=== PATIENT | female | born 1980 | race Caucasian/White ===

== ENCOUNTER 2019-10-02 14:25 | Observation (INO) | payer OTHER, MEDICAID, SELFPAY ==
[2019-10-02] VITALS (12 sets, daily range): BP systolic 125–152; BP diastolic 73–100; PULSE 68–109; RESP 10–18; TEMP 36–36.9; O2SAT 93–97; BMI 42.5
--- NOTE | 2019-10-02 16:10 | DI.CT.S_ITS ---
PROCEDURE: CT ABDOMEN PELVIS W CON INDICATIONS: rectal abscess? TECHNIQUE: After the administration of oral and intravenous contrast, 5 mm thick sections acquired from the diaphragms to the symphysis. 5 mm thick coronal and sagittal reformats were performed. For radiation dose reduction, the following was used: automated exposure control, adjustment of mA and/or kV according to patient size. COMPARISON: None. FINDINGS: Image quality: Diagnostic. ABDOMEN: Lung bases: Lung bases are clear. Heart size is normal. Solid organs: The liver is slightly decreased when compared to the spleen. Normal definite liver lesions are evident. The patient has had a prior cholecystectomy. The common bile duct is slightly prominent in size, but probably within normal limits given the patient's prior cholecystectomy. The spleen is otherwise unremarkable. The pancreas, adrenals, and kidneys are within normal limits. There is no hydronephrosis. Small extrarenal pelvises may be present bilaterally. No ureteral calculi are identified. There is a small phlebolith adjacent to the distal aspect of the left ureter near the vesicoureteral junction, which is felt to be located outside the ureter (image 80, series 2). Peritoneum and bowel: The stomach is unremarkable. The small bowel loops are nondilated. The appendix is well-visualized and normal. There is mild wall thickening involving the sigmoid colon without surrounding inflammation, which is probably related to incomplete distention. There may be areas of similar wall thickening involving the transverse colon within the left hemiabdomen. Wall thickening involving the rectum is identified with questionable slight adjacent edema within the mid fat. Wall thickening of the anus is also present. There is a small peripherally enhancing fluid collection identified just below the level of the mass within the right gluteal crease, measuring approximately 1.9 x 1.3 cm (image 103, series 2). There is a small tract extending from this loculated fluid collection into the adjacent midline gluteal crease towards the distal margin of the coccyx (image 94, series 2), which may represent a small fistula. No free fluid or loculated fluid collection is present. There is no free air. Nodes and vessels: No retroperitoneal or mesenteric adenopathy. Aorta and inferior vena cava are normal in caliber. Bones: No acute fracture or suspicious osseous lesion is identified. Age-appropriate degenerative changes of the lower lumbar spine are present. PELVIS: Genitourinary: Bladder wall thickness is normal. The uterus and ovaries are not enlarged or well evaluated on CT. Miscellaneous: No inguinal hernias or adenopathy. No free fluid or loculated fluid collections are present. Bones: No suspicious bony lesions. No acute pelvic fractures are identified. IMPRESSION: 1. Thickening of the wall of the rectum and anus is suggestive of anal-proctitis. 2. Perianal fluid collection with a tract extending into the adjacent soft tissues towards the distal tip of the coccyx is highly suspicious for a small perianal abscess with possible early fistula tract formation. 3. No bowel obstruction. 4. Mild hepatic steatosis. Dictated by: Holden Oliver M.D. on 10/02/2019 at 16:33 Approved by: Holden Oliver M.D. on 10/02/2019 at 16:41
[2019-10-02 16:15] LABS: Add Manual Diff / Slide Review NO; Basophils Absolute Auto 100 /uL (0-100); Basophils Percent Auto 0.9 % (0-2); Eosinophils Absolute Auto 200 /uL (0-450); Eosinophils Percent Auto 2.7 % (2-4); Hematocrit 40.9 % (36-46); Hemoglobin 13.6 g/dL (12.0-16.0); Lymphocytes Absolute Auto 2000 /uL (1100-4500); Lymphocytes Percent Auto 22.1 % (25-40); Mean Corpuscular HGB Conc 33.3 % (30-36); Mean Corpuscular Hemoglobin 29.4 PG (26-34); Mean Corpuscular Volume 88.3 fL (80-100); Monocytes Absolute Auto 500 /uL (0-900); Monocytes Percent Auto 5.9 % (3-14); Neutrophils Absolute Auto 6200 /uL (1500-7000); Neutrophils Percent Auto 68.4 % (50-75); Platelet Count 310 X10^3/uL (150-400); Red Blood Cell Count 4.63 X10^6/uL (4.0-5.2)
[2019-10-02 16:30] LABS: Alanine Aminotransferase 28 IU/L (<35); Albumin 4.1 g/dL (3.5-5.0); Albumin Globulin Ratio 1.3 (1.0-2.8); Alkaline Phosphatase 51 U/L (38-126); Aspartate Aminotransferase 40 IU/L (14-36); Blood Urea Nitrogen 12 mg/dL (7-17); Calcium 9.1 mg/dL (8.4-10.2); Carbon Dioxide 29 mmol/L (22-32); Chloride 101 mmol/L (98-107); Estimated Glomerular Filt Rate > 60.0 mL/min (>60); Globulin 3.2 g/dL (1.7-4.1); Glucose 98 mg/dL (70-100); HEMOLYSIS 152 (0-50); Potassium 5.1 mmol/L (3.4-5.1); Sodium 137 mmol/L (137-145); Total Protein 7.3 g/dL (6.3-8.2)
[2019-10-02] MEDS: diphenhydrAMINE 50 MG/ML VIAL IV (16:39)
[2019-10-02] MEDS: methylPREDNISolone 125 MG/2 ML VIAL IV (16:40)
--- NOTE | 2019-10-02 17:03 | PC.NURSE ---
patient states she had a tubaligation. venkata marie
--- NOTE | 2019-10-02 17:56 | ED.SKABFB ---
HPI - Skin/Abscess/Foreign Bdy <NATALIE Hernandez - Last Filed: 10/02/19 20:14> General Chief complaint: Skin/Abscess/Foreign Body Stated complaint: Lump/Sore on top of buttocks Time Seen by Provider: 10/02/19 15:11 Source: patient Mode of arrival: Ambulatory Limitations: no limitations History of Present Illness HPI narrative: The patient is a 29-year-old female with history of smoking and cholecystectomy who presents for chief complaint of a ?boil on the backside.She states she noticed it a few days ago, has not taken anything for pain. She denies any fevers nausea vomiting or diarrhea. She states that her boyfriend looked down and noticed a small red bump. She has never had this before. She has not done any soaks or taken anything or applied anything. Related Data Home Medications Medication Instructions Recorded Confirmed NAPROXEN (NAPROSYN) #0 04/25/11 Allergies Allergy/AdvReac Type Severity Reaction Status Date / Time Iodine and Iodide Containing Allergy Severe Rash Verified 10/02/19 16:37 Produc Review of Systems <NATALIE Hernandez - Last Filed: 10/02/19 20:14> Review of Systems Narrative: GENERAL: Denies chills, fatigue, malaise, fever, sweats. HEENT: Denies sinus pain, ear pain, sore throat, difficulty swallowing, dizziness. RESPIRATORY: Denies dyspnea, cough, wheezing, hemoptysis, sputum. CARDIOVASCULAR: Denies chest pain, palpitations, orthopnea, edema, GASTROINTESTINAL: See HPI : Denies dysuria, frequency, incontinence, hematuria, urinary retention. MUSCULOSKELETAL: denies weakness, joint pain, or bony pain SKIN: See HPI NEUROLOGIC: Denies weakness, headache, numbness, change in speech, confusion, seizures, incoordination. PSYCHIATRIC: No concerning psychosocial issues. 12 point review of systems is negative except for those stated above Patient History <NATALIE Hernandez - Last Filed: 10/02/19 20:14> Social History household members: significant other Smoking Status: Current every day smoker alcohol intake frequency: holidays/special occasions only Substance Use Type: marijuana Exam <NATALIE Hernandez - Last Filed: 10/02/19 20:14> Narrative Exam Narrative: GENERAL: This is a well-nourished, well-developed patient, in no acute distress HEAD: Atraumatic. Normocephalic. No temporal or scalp tenderness. EYES: Pupils equal round and reactive. Extraocular motions intact. No scleral icterus. No injection or drainage. ENT: Nose without bleeding, purulent drainage or septal hematoma. Throat without erythema, tonsillar hypertrophy or exudate. Uvula midline. Airway patent. NECK: Trachea midline. No JVD or lymphadenopathy. Supple, nontender, no meningeal signs. CARDIOVASCULAR: Regular rate and rhythm without murmurs, gallops, or rubs. RESPIRATORY: Breath sounds equal bilaterally. Diffuse expiratory wheezes to auscultation bilaterally. GASTROINTESTINAL: Abdomen soft, non-tender, nondistended. No hepato-splenomegaly, or palpable masses. No guarding. EXTREMITIES: No clubbing, cyanosis, or edema. No joint tenderness, effusion, or edema noted. BACK: Nontender without deformity or crepitance. No flank tenderness. NEURO: AOx3. SKIN: No rash or erythema. Rectal: Diann hastings as commercial litigation associate, area of erythema and tenderness at 2200 pm. 1 cm approx Initial Vital Signs Initial Vital Signs: Vital Signs Temperature 98.4 F 10/02/19 14:38 Pulse Rate 88 10/02/19 14:38 Respiratory Rate 14 10/02/19 14:38 Blood Pressure 152/100 H 10/02/19 14:38 Pulse Oximetry 97 10/02/19 14:38 <Kwesi Noland DO - Last Filed: 10/03/19 01:31 PDT> Initial Vital Signs Initial Vital Signs: Vital Signs Temperature 98.4 F 10/02/19 14:38 Pulse Rate 88 10/02/19 14:38 Respiratory Rate 14 10/02/19 14:38 Blood Pressure 152/100 H 10/02/19 14:38 Pulse Oximetry 97 10/02/19 14:38 Course <NATALIE Hernandez - Last Filed: 10/02/19 20:14> Orders Ordered: Albuterol (Ventolin) 2.5 mg INH NOW PRN PRN Reason: Coughing, Wheezing, Dyspnea Albuterol (Ventolin) 2.5 mg INH [id number] PRN PRN Reason: Shortness Of Breath Docusate Sodium (Colace) 100 mg PO BID [facility] Last Admin: 11/02/19 22:37 Dose: 100 mg Documented by: MAXINE Lactated Ringer's (Lactated Ringers) 1,000 mls @ 42 mls/hr IV NOW ONE Stop: 10/03/19 21:01 Last Infusion: 10/02/19 21:49 Dose: 0 mls/hr Documented by: Admin: 10/02/19 20:11 Dose: 42 mls/hr Documented by: KAILA Lactated Ringer's (Lactated Ringers) 1,000 mls @ 100 mls/hr IV CONT [facility] Last Admin: 10/02/19 22:36 Dose: 100 mls/hr Documented by: MAXINE Piperacillin/Tazobactam/Dextrose (Zosyn) 3.375 gm in 50 mls @ 100 mls/hr IV NOW ONE Stop: 10/03/19 04:29 Ketorolac Tromethamine (Toradol) 15 mg INJ Q6HR PRN PRN Reason: Pain, Moderate (4-6) Naloxone HCl (Narcan) 0.2 mg IV Q2MIN PRN PRN Reason: Opiate Reversal Oxycodone/Acetaminophen (Percocet 5/325) 2 tab PO Q4HR PRN PRN Reason: Pain, Severe (7-10) Last Admin: 10/03/19 00:23 Dose: 2 tab Documented by: ALEX Psyllred Hydrophilic Mucilloid (Metamucil Fiber Packet) 1 packet PO BID [facility] Last Admin: 10/02/19 22:37 Dose: 1 packet Documented by: MAXINE Discontinued Medications Albuterol/Ipratropium (Duoneb) 3 ml INH NOW ONE Stop: 10/02/19 18:53 Last Admin: 10/02/19 18:58 Dose: 3 ml Documented by: CASANDRA Benzocaine (Cepacol Lozenge) 1 each PO PRN PRN PRN Reason: Sore Throat Bupivacaine HCl/Epinephrine Bitart (Sensorcaine 0.25% W/ Epi (Pf)) 30 ml INJ NOW ONE Stop: 10/02/19 21:15 Last Admin: 10/02/19 21:00 Dose: 40 ml Documented by: GLADIS Bupivacaine Liposome (Exparel) 266 mg INJ NOW ONE Stop: 10/02/19 21:16 Last Admin: 10/02/19 21:00 Dose: 266 mg Documented by: GLADIS Dibucaine (Nupercainal 1% Oint) 1 applic TOP NOW ONE Stop: 10/02/19 21:17 Last Admin: 10/02/19 21:16 Dose: 1 applic Documented by: GLADIS Diphenhydramine HCl (Benadryl) 50 mg IV NOW ONE Stop: 10/02/19 16:10 Last Admin: 10/02/19 16:39 Dose: 50 mg Documented by: KATARINA Fentanyl (Sublimaze) 50 mcg IV Q5MIN PRN PRN Reason: Pain, Moderate (4-6) Hydromorphone HCl (Dilaudid) 0.5 mg IV Q5MIN PRN PRN Reason: Pain, Moderate (4-6) Hydroxyzine HCl (Vistaril) 25 mg IM NOW PRN PRN Reason: Pain, Mild (1-3) Sodium Chloride (Normal Saline 0.9%) 1,000 mls @ 150 mls/hr IV CONT TWILA Last Infusion: 10/02/19 20:10 Dose: 150 mls/hr Documented by: Admin: 10/02/19 18:31 Dose: 150 mls/hr Documented by: LISA Piperacillin/Tazobactam/Dextrose (Zosyn) 3.375 gm in 50 mls @ 100 mls/hr IV NOW ONE Stop: 10/02/19 19:17 Last Infusion: 10/02/19 20:10 Dose: 0 mls/hr Documented by: Admin: 10/02/19 19:27 Dose: 100 mls/hr Documented by: BO Famotidine (Pepcid) 20 mg in 50 mls @ 200 mls/hr IV NOW ONE Stop: 10/02/19 19:49 Last Infusion: 10/02/19 20:12 Dose: 0 mls/hr Documented by: Infusion: 10/02/19 20:11 Dose: 200 mls/hr Documented by: Admin: 10/02/19 20:02 Dose: 200 mls/hr Documented by: BO Piperacillin/Tazobactam/Dextrose (Zosyn) 3.375 gm in 50 mls @ 100 mls/hr IV NOW ONE Stop: 10/02/19 22:41 Last Admin: 10/02/19 23:15 Dose: Not Given Documented by: MAXINE Lidocaine HCl (Xylocaine Jelly 2%) 1 ml TOP NOW ONE Stop: 10/02/19 21:18 Last Admin: 10/02/19 21:17 Dose: 30 ml Documented by: GLADIS Lorazepam (Ativan) 0.25 mg IV NOW PRN PRN Reason: Anxiety Meperidine HCl (Demerol) 25 mg IV Q5MIN PRN PRN Reason: Pain or shivering Methylprednisolone (Solu-Medrol 125 Mg Vial) 125 mg IV NOW ONE Stop: 10/02/19 16:10 Last Admin: 10/02/19 16:40 Dose: 125 mg Documented by: KATARINA Metoclopramide HCl (Reglan) 10 mg IV NOW ONE Stop: 10/02/19 19:36 Last Admin: 10/02/19 20:02 Dose: 10 mg Documented by: BO Metoclopramide HCl (Reglan) 10 mg IV NOW PRN PRN Reason: Nausea And Vomiting Morphine Sulfate (Morphine) 4 mg IV NOW ONE Stop: 10/02/19 18:24 Last Admin: 10/02/19 18:31 Dose: 4 mg Documented by: LISA Nicotine (Nicoderm) 14 mg TOP NOW ONE Stop: 10/02/19 22:13 Last Admin: 10/02/19 22:39 Dose: 14 mg Documented by: MAXINE Ondansetron HCl (Zofran) 4 mg IV NOW ONE Stop: 10/02/19 18:24 Last Admin: 10/02/19 18:31 Dose: 4 mg Documented by: LISA Ondansetron HCl (Zofran) 4 mg IV NOW PRN PRN Reason: Nausea And Vomiting Oxycodone/Acetaminophen (Percocet 5/325) 1 tab PO Q30MIN PRN PRN Reason: Mild or moderate pain Vital Signs Vital signs: Vital Signs - 8 hr 10/02/19 19:00 Pulse Rate 68 Respiratory Rate 14 Pulse Oximetry 93 <Kwesi Noland DO - Last Filed: 10/03/19 01:31 PDT> Orders Ordered: Albuterol (Ventolin) 2.5 mg INH NOW PRN PRN Reason: Coughing, Wheezing, Dyspnea Albuterol (Ventolin) 2.5 mg INH [id number] PRN PRN Reason: Shortness Of Breath Docusate Sodium (Colace) 100 mg PO BID [facility] Last Admin: 10/02/19 22:37 Dose: 100 mg Documented by: MAXINE Lactated Ringer's (Lactated Ringers) 1,000 mls @ 42 mls/hr IV NOW ONE Stop: 10/03/19 21:01 Last Infusion: 10/02/19 21:49 Dose: 0 mls/hr Documented by: Admin: 10/02/19 20:11 Dose: 42 mls/hr Documented by: KAILA Lactated Ringer's (Lactated Ringers) 1,000 mls @ 100 mls/hr IV CONT [facility] Last Admin: 10/02/19 22:36 Dose: 100 mls/hr Documented by: MAXINE Piperacillin/Tazobactam/Dextrose (Zosyn) 3.375 gm in 50 mls @ 100 mls/hr IV NOW ONE Stop: 10/03/19 04:29 Ketorolac Tromethamine (Toradol) 15 mg INJ Q6HR PRN PRN Reason: Pain, Moderate (4-6) Naloxone HCl (Narcan) 0.2 mg IV Q2MIN PRN PRN Reason: Opiate Reversal Oxycodone/Acetaminophen (Percocet 5/325) 2 tab PO Q4HR PRN PRN Reason: Pain, Severe (7-10) Last Admin: 10/03/19 00:23 Dose: 2 tab Documented by: ALEX Psyllium Hydrophilic Mucilloid (Metamucil Fiber Packet) 1 packet PO BID [facility] Last Admin: 10/02/19 22:37 Dose: 1 packet Documented by: MAXINE Discontinued Medications Albuterol/Ipratropium (Duoneb) 3 ml INH NOW ONE Stop: 10/02/19 18:53 Last Admin: 10/02/19 18:58 Dose: 3 ml Documented by: CASANDRA Benzocaine (Cepacol Lozenge) 1 each PO PRN PRN PRN Reason: Sore Throat Bupivacaine HCl/Epinephrine Bitart (Sensorcaine 0.25% W/ Epi (Pf)) 30 ml INJ NOW ONE Stop: 10/02/19 21:15 Last Admin: 10/02/19 21:00 Dose: 40 ml Documented by: GLADIS Bupivacaine Liposome (Exparel) 266 mg INJ NOW ONE Stop: 10/02/19 21:16 Last Admin: 10/02/19 21:00 Dose: 266 mg Documented by: GLADIS Dibucaine (Nupercainal 1% Oint) 1 applic TOP NOW ONE Stop: 10/02/19 21:17 Last Admin: 10/02/19 21:16 Dose: 1 applic Documented by: GLADIS Diphenhydramine HCl (Benadryl) 50 mg IV NOW ONE Stop: 10/02/19 16:10 Last Admin: 10/02/19 16:39 Dose: 50 mg Documented by: KATARINA Fentanyl (Sublimaze) 50 mcg IV Q5MIN PRN PRN Reason: Pain, Moderate (4-6) Hydromorphone HCl (Dilaudid) 0.5 mg IV Q5MIN PRN PRN Reason: Pain, Moderate (4-6) Hydroxyzine HCl (Vistaril) 25 mg IM NOW PRN PRN Reason: Pain, Mild (1-3) Sodium Chloride (Normal Saline 0.9%) 1,000 mls @ 150 mls/hr IV CONT TWILA Last Infusion: 10/02/19 20:10 Dose: 150 mls/hr Documented by: Admin: 10/02/19 18:31 Dose: 150 mls/hr Documented by: LISA Piperacillin/Tazobactam/Dextrose (Zosyn) 3.375 gm in 50 mls @ 100 mls/hr IV NOW ONE Stop: 10/02/19 19:17 Last Infusion: 10/02/19 20:10 Dose: 0 mls/hr Documented by: Admin: 10/02/19 19:27 Dose: 100 mls/hr Documented by: BO Famotidine (Pepcid) 20 mg in 50 mls @ 200 mls/hr IV NOW ONE Stop: 10/02/19 19:49 Last Infusion: 10/02/19 20:12 Dose: 0 mls/hr Documented by: Infusion: 10/02/19 20:11 Dose: 200 mls/hr Documented by: Admin: 10/02/19 20:02 Dose: 200 mls/hr Documented by: BO Piperacillin/Tazobactam/Dextrose (Zosyn) 3.375 gm in 50 mls @ 100 mls/hr IV NOW ONE Stop: 10/02/19 22:41 Last Admin: 10/02/19 23:15 Dose: Not Given Documented by: MAXINE Lidocaine HCl (Xylocaine Jelly 2%) 1 ml TOP NOW ONE Stop: 10/02/19 21:18 Last Admin: 10/02/19 21:17 Dose: 30 ml Documented by: GLADIS Lorazepam (Ativan) 0.25 mg IV NOW PRN PRN Reason: Anxiety Meperidine HCl (Demerol) 25 mg IV Q5MIN PRN PRN Reason: Pain or shivering Methylprednisolone (Solu-Medrol 125 Mg Vial) 125 mg IV NOW ONE Stop: 10/02/19 16:10 Last Admin: 10/02/19 16:40 Dose: 125 mg Documented by: KATARINA Metoclopramide HCl (Reglan) 10 mg IV NOW ONE Stop: 10/02/19 19:36 Last Admin: 10/02/19 20:02 Dose: 10 mg Documented by: BO Metoclopramide HCl (Reglan) 10 mg IV NOW PRN PRN Reason: Nausea And Vomiting Morphine Sulfate (Morphine) 4 mg IV NOW ONE Stop: 10/02/19 18:24 Last Admin: 10/02/19 18:31 Dose: 4 mg Documented by: LISA Nicotine (Nicoderm) 14 mg TOP NOW ONE Stop: 10/02/19 22:13 Last Admin: 10/02/19 22:39 Dose: 14 mg Documented by: MAXINE Ondansetron HCl (Zofran) 4 mg IV NOW ONE Stop: 10/02/19 18:24 Last Admin: 10/02/19 18:31 Dose: 4 mg Documented by: LISA Ondansetron HCl (Zofran) 4 mg IV NOW PRN PRN Reason: Nausea And Vomiting Oxycodone/Acetaminophen (Percocet 5/325) 1 tab PO Q30MIN PRN PRN Reason: Mild or moderate pain Vital Signs Vital signs: Vital Signs - 8 hr 10/02/19 19:00 Pulse Rate 68 Respiratory Rate 14 Pulse Oximetry 93 MDM - Skin/Abscess/Foreign Bdy <NATALIE Hernandez - Last Filed: 10/02/19 20:14> Lab Data Result diagrams: 10/02/19 16:05 10/02/19 16:05 Labs: Lab Results 10/02/19 10/02/19 Range/Units 16:05 16:05 WBC 9.0 (4.5-11.0) X10^3/uL RBC 4.63 (4.0-5.2) X10^6/uL Hgb 13.6 (12.0-16.0) g/dL Hct 40.9 (36-46) % MCV 88.3 (80-100) fL MCH 29.4 (26-34) PG MCHC 33.3 (30-36) % RDW 14.0 (11.6-14.8) % Plt Count 310 (150-400) X10^3/uL Neut % (Auto) 68.4 (50-75) % Lymph % (Auto) 22.1 L (25-40) % Wilson % (Auto) 5.9 (3-14) % Eos % (Auto) 2.7 (2-4) % Baso % (Auto) 0.9 (0-2) % Neut # (Auto) 6200 (3983-9312) /uL Lymph # (Auto) 2000 (1689-4426) /uL Wilson # (Auto) 500 (0-900) /uL Eos # (Auto) 200 (0-450) /uL Baso # (Auto) 100 (0-100) /uL Sodium 137 (137-145) mmol/L Potassium 5.1 (3.4-5.1) mmol/L Chloride 101 (98-107) mmol/L Carbon Dioxide 29 (22-32) mmol/L BUN 12 (7-17) mg/dL Creatinine 0.80 (0.52-1.04) mg/dL Estimated GFR > 60.0 (>60) mL/min BUN/Creatinine Ratio 15.0 (6-22) Glucose 98 (70-100) mg/dL Calcium 9.1 (8.4-10.2) mg/dL Magnesium 2.0 (1.6-2.3) mg/dL Total Bilirubin 1.0 (0.2-1.3) mg/dL AST 40 H (14-36) IU/L ALT 28 (<35) IU/L Alkaline Phosphatase 51 (38-126) U/L Total Protein 7.3 (6.3-8.2) g/dL Albumin 4.1 (3.5-5.0) g/dL Globulin 3.2 (1.7-4.1) g/dL Albumin/Globulin Ratio 1.3 (1.0-2.8) Urine Dip Bedside Urine Glucose Negative Bedside Urine Bilirubin - Negative Bedside Urine Ketone - Negative Urine Specific [place] 1.010 Bedside Urine Occult Blood - Negative Bedside Urine pH 6.0 Bedside Urine Protein - Negative Bedside Urine Urobilinogen - Negative Bedside Urine Nitrite - Negative Bedside Urine Leukocytes - Negative Esterase Imaging Data CT scan - abdomen: Radiologist's impression: [address] [address] [address] Scan Report Signed Patient: Lucille Lund#: [id number] : 1980Acct:[id number] Age/Sex: 39 / FDate of Service: 10/02/19 Loc: ED Accession Number: [id number] Procedure: CT abdomen pelvis w con Ordering Provider: Janet Paniagua TRAFFIC ENGINEERING TECHNICIAN- PROCEDURE: CT ABDOMEN PELVIS W CON INDICATIONS: rectal abscess? TECHNIQUE: After the administration of oral and intravenous contrast, 5 mm thick sections acquired from the diaphragms to the symphysis. 5 mm thick coronal and sagittal reformats were performed. For radiation dose reduction, the following was used: automated exposure control, adjustment of mA and/or kV according to patient size. COMPARISON: None. FINDINGS: Image quality: Diagnostic. ABDOMEN: Lung bases: Lung bases are clear. Heart size is normal. Solid organs: The liver is slightly decreased when compared to the spleen. Normal definite liver lesions are evident. The patient has had a prior cholecystectomy. The common bile duct is slightly prominent in size, but probably within normal limits given the patient's prior cholecystectomy. The spleen is otherwise unremarkable. The pancreas, adrenals, and kidneys are within normal limits. There is no hydronephrosis. Small extrarenal pelvises may be present bilaterally. No ureteral calculi are identified. There is a small phlebolith adjacent to the distal aspect of the left ureter near the vesicoureteral junction, which is felt to be located outside the ureter (image 80, series 2). Peritoneum and bowel: The stomach is unremarkable. The small bowel loops are nondilated. The appendix is well-visualized and normal. There is mild wall thickening involving the sigmoid colon without surrounding inflammation, which is probably related to incomplete distention. There may be areas of similar wall thickening involving the transverse colon within the left hemiabdomen. Wall thickening involving the rectum is identified with questionable slight adjacent edema within the mid fat. Wall thickening of the anus is also present. There is a small peripherally enhancing fluid collection identified just below the level of the mass within the right gluteal crease, measuring approximately 1.9 x 1.3 cm (image 103, series 2). There is a small tract extending from this loculated fluid collection into the adjacent midline gluteal crease towards the distal margin of the coccyx (image 94, series 2), which may represent a small fistula. No free fluid or loculated fluid collection is present. There is no free air. Nodes and vessels: No retroperitoneal or mesenteric adenopathy. Aorta and inferior vena cava are normal in caliber. Bones: No acute fracture or suspicious osseous lesion is identified. Age-appropriate degenerative changes of the lower lumbar spine are present. PELVIS: Genitourinary: Bladder wall thickness is normal. The uterus and ovaries are not enlarged or well evaluated on CT. Miscellaneous: No inguinal hernias or adenopathy. No free fluid or loculated fluid collections are present. Bones: No suspicious bony lesions. No acute pelvic fractures are identified. IMPRESSION: 1. Thickening of the wall of the rectum and anus is suggestive of anal-proctitis. 2. Perianal fluid collection with a tract extending into the adjacent soft tissues towards the distal tip of the coccyx is highly suspicious for a small perianal abscess with possible early fistula tract formation. 3. No bowel obstruction. 4. Mild hepatic steatosis. Dictated by: Holden Oliver M.D. on 10/02/2019 at 16:33 Approved by: Holden Oliver M.D. on 10/02/2019 at 16:41 MDM Narrative Medical decision making narrative: The patient is a 39-year-old female presents with a chief complaint of a boil on the backside.Exam is suspicious for a possible perirectal abscess, so an IV was started and blood work was drawn. CT scan illustrated a an perianal abscess with possible early fistula tract formation. She has a leukocytosis on her labs, is not systemically ill on exam. Given the patient's CT results, I spoke with Dr Lieberman the surgeon on-call, who came in to evaluate the patient and brought her to the operating room. The patient was given a dose of Zosyn in the emergency department as well as morphine and Zofran. Patient states understanding of admission, and has no questions or concerns. Last intake was chocolate at 12:30 p.m. and water at 1:00 p.m.. Patient was to operating room at 8:15 p.m.. <Kwesi Noland DO - Last Filed: 10/03/19 01:31 PDT> Lab Data Labs: Lab Results 10/02/19 10/02/19 Range/Units 16:05 16:05 WBC 9.0 (4.5-11.0) X10^3/uL RBC 4.63 (4.0-5.2) X10^6/uL Hgb 13.6 (12.0-16.0) g/dL Hct 40.9 (36-46) % MCV 88.3 (80-100) fL MCH 29.4 (26-34) PG MCHC 33.3 (30-36) % RDW 14.0 (11.6-14.8) % Plt Count 310 (150-400) X10^3/uL Neut % (Auto) 68.4 (50-75) % Lymph % (Auto) 22.1 L (25-40) % Wilson % (Auto) 5.9 (3-14) % Eos % (Auto) 2.7 (2-4) % Baso % (Auto) 0.9 (0-2) % Neut # (Auto) 6200 (6337-5372) /uL Lymph # (Auto) 2000 (4032-1557) /uL Wilson # (Auto) 500 (0-900) /uL Eos # (Auto) 200 (0-450) /uL Baso # (Auto) 100 (0-100) /uL Sodium 137 (137-145) mmol/L Potassium 5.1 (3.4-5.1) mmol/L Chloride 101 (98-107) mmol/L Carbon Dioxide 29 (22-32) mmol/L BUN 12 (7-17) mg/dL Creatinine 0.80 (0.52-1.04) mg/dL Estimated GFR > 60.0 (>60) mL/min BUN/Creatinine Ratio 15.0 (6-22) Glucose 98 (70-100) mg/dL Calcium 9.1 (8.4-10.2) mg/dL Magnesium 2.0 (1.6-2.3) mg/dL Total Bilirubin 1.0 (0.2-1.3) mg/dL AST 40 H (14-36) IU/L ALT 28 (<35) IU/L Alkaline Phosphatase 51 (38-126) U/L Total Protein 7.3 (6.3-8.2) g/dL Albumin 4.1 (3.5-5.0) g/dL Globulin 3.2 (1.7-4.1) g/dL Albumin/Globulin Ratio 1.3 (1.0-2.8) Urine Dip Bedside Urine Glucose Negative Bedside Urine Bilirubin - Negative Bedside Urine Ketone - Negative Urine Specific [place] 1.010 Bedside Urine Occult Blood - Negative Bedside Urine pH 6.0 Bedside Urine Protein - Negative Bedside Urine Urobilinogen - Negative Bedside Urine Nitrite - Negative Bedside Urine Leukocytes - Negative Esterase Discharge Plan Departure Patient Disposition: Admitted as Observation Clinical Impression: Perianal abscess Discharge Date/Time: 10/02/19 20:12 Admit Date/Time: 10/02/19 19:32 Admit Provider: Teresita Lieberman <Kwesi Noland, DO - Last Filed: 10/03/19 01:31 PDT> Sign Out Provider Sign Out Attestation: Dr Noland Co-Sign Statement: I was available for consultation during this patient's emergency department visit. This chart is signed by myself for administrative purposes only. I did not have direct contact with this patient during this visit. They were seen independently by the APC.
[2019-10-02] MEDS: ONDANSETRON 4 MG/2 ML INJ IV (18:31)
[2019-10-02] MEDS: SODIUM CHLORIDE 0.9% 1,000 ML 150 ML IV (18:31)
[2019-10-02] MEDS: MORPHINE 4 MG/ML INJ IV (18:31)
[2019-10-02] MEDS: ALBUTEROL/IPRATROPIUM 3 ML AMPUL INH (18:58)
[2019-10-02] MEDS: PIPERACILLIN-TAZO 3.375 GM/50 ML FROZ.PIGGY IV (19:27)
--- NOTE | 2019-10-02 19:37 | P.HP_ITS ---
History of Present Illness History of Present Illness Date Patient Seen: 10/02/19 Time Patient Seen: 19:38 Chief complaint: Lump/Sore on top of buttocks Narrative: This is a 39-year-old woman with morbid obesity, active tobacco smoking, anxiety, osteoarthritis, and active marijuana smoking who started having anal pain after bowel movement yesterday. She then noticed an area of swelling and tenderness on her right posterior anoderm. She feels that has been draining slightly, and has noticed some blood-tinged mucus in the area. She denies any prior similar symptoms before yesterday. She denies any subjective fevers, nausea, vomiting. She denies chronic constipation, although she occasionally has to sit on the toilet for more than a couple of minutes to have a bowel movement. She does not use any bowel regimen of stool softeners. She had a colonoscopy many years ago for abdominal pain. She does not recall the specific findings. She denies any personal history of bloody diarrhea, or chronic abdominal pain. CT scan in the ER shows a small abscess in the perianal area and a possible fistula tract. ROS: Thirteen system review is negative other than as mentioned below and in HPI. Past medical history: Anxiety Denies diabetes Obesity, BMI 42 Past surgical history: x2 Tubal ligation Family medical history: Father-stomach cancer Mother-skin cancer Denies family history of colorectal cancer autoimmune disease Social history: Active tobacco smoking, trying to quit Active marijuana smoking, daily use Denies significant alcohol use Significant other present in the ER-- Miles Allergies: Topical iodine-rash/hives Shellfish-anaphylaxis in childhood Home Medications: Wellbutrin (for anxiety, and smoking cessation) PE: GENERAL: Well groomed and cooperative. Appears stated age. Significantly obese, BMI 42. Answers questions promptly and appropriately. Vital signs noted. HENT: Normocephalic, atraumatic. Hearing intact. Oral mucosa is pink and moist. Poor dentition. EYES: Conjunctiva pink, sclera white, no periorbital swelling. CARDIOVASCULAR: Regular rate. No pedal edema. RESPIRATORY: Normal respiratory rate, breathing comfortably on room air. GASTROINTESTINAL: Abdomen soft and non-distended Perianal: 2 cm x 2 cm area of swelling and tenderness in the right posterior anoderm, with a small punctate area of drainage OLIVE: No palpable masses, significant tenderness to palpation in the posterior midline GENITALURINARY: No flank tenderness. MUSCULOSKELETAL: Equal tone and mass bilaterally. SKIN: Warm, dry, soft, appropriate color for ethnicity. No other lesions, rashes, or wounds. NEURO: Alert and Oriented X 3. No gross sensory deficits, or cognitive issues. PSYCH: Appropriate affect and mood. Patient History Family & Social History Safety & Behavioral: Feels Safe in Current Yes Environment Tobacco & Substance use: Smoking Status Current every day smoker alcohol intake frequency holiday/special occasion Substance Use Type marijuana Meds Home Medications and Allergies Home Medications Medication Instructions Recorded Confirmed Type NAPROXEN (NAPROSYN) #0 04/25/11 History Allergies Allergy/AdvReac Type Severity Reaction Status Date / Time Iodine and Iodide Containing Allergy Severe Rash Verified 10/02/19 16:37 Produc Exam Vital Signs (past 8 hours): - 10/02/19 14:38 10/02/19 19:00 Temperature 98.4 F Pulse Rate 88 68 Respiratory Rate 14 14 Blood Pressure 152/100 H Pulse Oximetry 97 93 Fraction of Inspired Oxygen 21 Oxygen Delivery Method Room Air Oxygen Flow Rate 0 Objective Labs Result Diagrams: 10/02/19 16:05 10/02/19 16:05 Labs: Laboratory Results - last 24 hr 10/02/19 10/02/19 16:05 16:05 WBC 9.0 RBC 4.63 Hgb 13.6 Hct 40.9 MCV 88.3 MCH 29.4 MCHC 33.3 RDW 14.0 Plt Count 310 Neut % (Auto) 68.4 Lymph % (Auto) 22.1 L [place] % (Auto) 5.9 Eos % (Auto) 2.7 Baso % (Auto) 0.9 Neut # (Auto) 6200 Lymph # (Auto) 2000 [place] # (Auto) 500 Eos # (Auto) 200 Baso # (Auto) 100 Sodium 137 Potassium 5.1 Chloride 101 Carbon Dioxide 29 BUN 12 Creatinine 0.80 Estimated GFR > 60.0 BUN/Creatinine Ratio 15.0 Glucose 98 Calcium 9.1 Magnesium 2.0 Total Bilirubin 1.0 AST 40 H ALT 28 Alkaline Phosphatase 51 Total Protein 7.3 Albumin 4.1 Globulin 3.2 Albumin/Globulin Ratio 1.3 Assessment & Plan Assessment and plan (1) Perianal abscess: Current visit: Yes Status: Acute (2) Anal fistula: Current visit: Yes Status: Acute (3) Obesity: Current visit: Yes Status: Acute (4) Smoker: Current visit: Yes Status: Acute Assessment & Plan narrative: This is a 39-year-old woman with an acute perianal abscess. I had a long discussion with her about the causes and treatments for this problem. I have explained that without draining this, it can progress into the pelvis, and can cause significant morbidity, and even sepsis and . I recommended that we go ahead and drain this in the OR, as draining at the bedside in the ER is likely to be inadequate to properly evaluate and treat this problem. I explained that perianal abscess can result in a chronic fistula tract, requiring further treatment, and even lead to problems with incontinence. After long discussion of the risks and benefits the patient would like to go ahead and proceed with operative drainage of this abscess, and possible placement of a drain or seton. Plan: NPO, IV fluids, IV antibiotics Urgent transfer to the OR for operative drainage of the abscess and possible drain/seton placement Plan on overnight observation for pain control and perioperative antibiotics 40 minutes were spent face to face with the patient. More than 50% of the time was spent in counseling and co-ordination of care regarding causes in treatments for her perianal abscess. Also a prolonged discussion of the risks and benefits of operative drainage, the possible risk of developing a chronic fistula, risk of incontinence, and possible need for additional surgeries or procedures. Time Spent With Patient Time with patient: Greater than 35 minutes Quality VTE Deep Vein Thrombosis/Pulmonary Embolism Present on Admission: No
[2019-10-02] MEDS: METOCLOPRAMIDE 10 MG/2 ML INJ IV (20:02)
[2019-10-02] MEDS: FAMOTIDINE 20 MG/50 ML PIGGYBACK 200 MG IV (20:02)
[2019-10-02] MEDS: LACTATED RINGERS 1,000 ML 42 ML IV (20:11)
--- NOTE | 2019-10-02 20:12 | PC.NURSE ---
1932 witness to informed consent with patient and Dr Lieberman.
--- NOTE | 2019-10-02 20:50 | SUR.OPER ---
Prone on padded OR bed, head in foam head support, gel chest rolls, gel pad under knees, pillow under lower legs, toes free of pressure, arms secured on padded arm boards at <90 degrees abduction. Safety belt at thigh.
[2019-10-02] MEDS: BUPIVACAINE LIPOSOME 266 MG/20 ML VIAL INJ (21:00)
[2019-10-02] MEDS: BUPIVACAINE 0.25% W/ EPI 30 ML VIAL INJ (21:00)
--- NOTE | 2019-10-02 21:12 | PM.OP.1 ---
Operative Date/Time/Diagnoses Date of procedure: 10/02/19 Time of procedure: 21:12 Pre-op diagnosis: Perianal abscess, perianal fistula Post-op diagnosis: other (Perianal abscess with fistula tract to anal canal, superficial perianal fistula) Procedure & Clinicians Procedure: 1. Anorectal exam under anesthesia 2. Drainage of perianal abscess 3. Seton placement in transsphincteric fistula tract 4. Fistulotomy of superficial fistula tract Same procedure as scheduled: Yes Indications: This is a 39-year-old woman who came into the ER [facility] with 1 day of perianal pain and swelling, with a CT scan suspicious for perianal fistula and abscess. Surgeon: Teresita Lieberman Click Yes if Unassisted: Yes Anesthesia Type: General Operative Notes Findings: 1. Superficial fistula at the posterior midline not involving sphincter muscle 2. Transsphincteric fistula at right posterior 1 o'clock position associated with associated abscess 3. Circumferential grade 2 internal hemorrhoids 4. Small circumferential external hemorrhoids Specimen(s): none sent Prosthetic devices, grafts, tissues, transplants, or devices: A vessel loop was placed as a seton in the fistula site Estimated Blood Loss (mL): 5 Procedure in detail: The patient was brought to the operating room. Sequential compression devices were placed on both legs and turned on. Appropriate perioperative antibiotics were given. Anesthesia time-out was conducted. The patient was then put under general anesthesia and intubated easily with an ET tube by the anesthesiologist. Patient was then positioned in prone emily-knife position on the operating table with all bony prominences padded. Her buttocks were taped apart exposing the anoderm. The perianal area was prepped and draped in sterile fashion using ChloraPrep on skin of the buttocks and soap and water on the anoderm and anal mucosa. Surgical time-out was conducted. A prominent bulging fluctuant abscess was seen in the right posterior anoderm at the 1 o'clock position. Local anesthetic was then infiltrated circumferentially in the anoderm of the entire inguinal ring using 20 mL of 0.25% Marcaine with epi. The anal ring was dilated with a Hill-Herrera retractor and an anorectal exam was conducted. Patient is found to have large grade 2 internal hemorrhoids without stigmata of bleeding. She had modest external hemorrhoids. She had a chronic appearing superficial fistula in the posterior midline with evidence of a healed over scar just deep to it which will likely was a fissure at 1 time. Local anesthetic was infiltrated into the skin of the superficial fistula, and fistulotomy was performed by unroofing the fistula and laying it open using electrocautery. No muscle fibers were seen within this very superficial fistula tract. At this point local anesthetic was infiltrated around the area of the abscess, and a 15 blade was used to make a 1 cm incision in the skin overlying the abscess site. Copious thick purulent drainage then was expressed from the site and suction clean. A total of 40 mL of 0.25% Marcaine with epi was used for this case. The abscess cavity was irrigated with saline. The abscess cavity was gently explored with a heavy weight lacrimal probe. The probe easily slipped into a fistula tract which communicated with the anal canal just superior to the sphincter muscles. An orange 2 mm vessel loop was then brought through the fistula tract and through the abscess incision site and tied in a loop to itself forming a seton. The entire anal derm was examined for hemostasis. A large Gelfoam covered with dibucaine was rolled and placed into the anal canal. The entire anal ring was then infiltrated with 20 mL of Exparel. 4 x 4 dressings were placed over the surgical site and anal opening and secured in place with Medipore tape. The patient was then turned supine onto her hospital bed, and she was awakened from anesthesia and extubated by the anesthesiologist without complications. Needle sponge and instrument counts were correct x2 at the end of the case. The patient was transferred to the postanesthesia care unit in stable condition. Complications: none (No immediate complications) Post-operative Condition: stable Disposition: observation Plan for aftercare: Will keep the patient overnight for pain management and another couple of doses of antibiotics. Disposition will depend on pain control and her follow-up CBC and exam.
[2019-10-02] MEDS: DIBUCAINE 1% OINT 28 GM 1 APPLIC TOP (21:16)
[2019-10-02] MEDS: LIDOCAINE JELLY 2% 30 ML TOP (21:17)
--- NOTE | 2019-10-02 21:38 | SUR.PHASEI ---
REPORT CALLED TO KELSIE BRUNO ON ACUTE CARE FLOOR. PT IN STABLE CONDITION, VSS. PT TALKING TO RN AND DENIES ANY PAIN/DISCOMFORT OR NAUSEA AT THIS TIME. PT APPEARS COMFORTABLE AT THIS TIME.
--- NOTE | 2019-10-02 22:05 | SUR.PHASEI ---
PT TRANSFERRED TO ACUTE CARE FLOOR IN STABLE CONDITION, VSS. PT ALERT AND TALKING TO RN DURING TRANSPORT. SIGNIFICANT IN ROOM, BEDSIDE REPORT GIVEN TO KELSIE BRUNO. TRANSFERRED CARE OF PT TO KELSIE BRUNO AT THAT TIME.
[2019-10-02] MEDS: LACTATED RINGERS 1,000 ML 100 ML IV (22:36)
[2019-10-02] MEDS: PSYLLIUM HUSK 1 PACKET PO (22:37)
[2019-10-02] MEDS: DOCUSATE 100 MG CAPSULE PO (22:37)
[2019-10-02] MEDS: NICOTINE 14 PATCH 14 MG TOP (22:39)
--- NOTE | 2019-10-02 22:58 | PC.NURSE ---
Pt arrived from PACU at approx 2220. A/O. DRSG c/d/i. RA 95%. Ambulated to bathroom, steady on feet. Denies pain. Oriented to room and call system. Admission completed. ABX timing changed per MD to 0400. Pharmacy notified to have order retimed. Sig other rooming in for the night.
[2019-10-03] VITALS: BP 116/68; PULSE 91; RESP 16; TEMP 36.5; O2SAT 95
[2019-10-03] MEDS: OXYCODONE/ACETAMINOPHEN 5/325 TABLET 2 TAB PO (00:23)
[2019-10-03 01:00] VITALS: BP 127/66; PULSE 91; RESP 17; TEMP 36.3; O2SAT 94
[2019-10-03] MEDS: PIPERACILLIN-TAZO 3.375 GM/50 ML FROZ.PIGGY IV (03:19)
[2019-10-03] MEDS: ONDANSETRON 4 MG/2 ML INJ IV (03:19)
--- NOTE | 2019-10-03 03:30 | PC.NURSE ---
Pt reports nausea, mild diaphoresis due to nausea. No antiemetic order, provider notified. New order for zofran 4mg IV q4hrs PRN. Pt given med per order. In addition pt denies passing flatus, endorses eructations which improved nausea. Bowel tones positive. No BM at this time. Provided pt with diet order education, rational for high fiber and avoid constipation due to importance of maintaining skin integrity and decrease risk of infection. Order to redress surgical site dressing if soiled after BM and provide sitz bath/shower spray after BM.
[2019-10-03 05:40] VITALS: BP 117/71; PULSE 86; RESP 16; TEMP 37.1; O2SAT 100
[2019-10-03 06:14] LABS: Add Manual Diff / Slide Review NO; Basophils Absolute Auto 0 /uL (0-100); Basophils Percent Auto 0.2 % (0-2); Eosinophils Absolute Auto 0 /uL (0-450); Hemoglobin 13.3 g/dL (12.0-16.0); Lymphocytes Absolute Auto 900 /uL (1100-4500); Lymphocytes Percent Auto 6.2 % (25-40); Mean Corpuscular HGB Conc 34.1 % (30-36); Mean Corpuscular Hemoglobin 30.3 PG (26-34); Monocytes Absolute Auto 300 /uL (0-900); Monocytes Percent Auto 2.3 % (3-14); Neutrophils Absolute Auto 12900 /uL (1500-7000); Neutrophils Percent Auto 91.3 % (50-75); Platelet Count 309 X10^3/uL (150-400); Red Blood Cell Count 4.38 X10^6/uL (4.0-5.2); Red Cell Distribution Width 13.7 % (11.6-14.8); White Blood Cell Count 14.1 X10^3/uL (4.5-11.0)
[2019-10-03] MEDS: LACTATED RINGERS 1,000 ML 100 ML IV (07:07)
[2019-10-03 07:25] VITALS: BP 135/83; PULSE 85; RESP 14; TEMP 36.4; O2SAT 92
[2019-10-03 07:30] VITALS: PULSE 83; O2SAT 95
[2019-10-03] MEDS: SODIUM CHLORIDE 0.9% FLUSH 10 ML IV (08:27)
[2019-10-03] MEDS: PSYLLIUM HUSK 1 PACKET PO (08:27)
[2019-10-03] MEDS: DOCUSATE 100 MG CAPSULE PO (08:27)
--- NOTE | 2019-10-03 08:43 | P.PN_ITS ---
Subjective Subjective Date Patient Seen: 10/03/19 Time Patient Seen: 08:15 Interval history: No acute events overnight. The patient denies significant pain. She has not had attempted to have a bowel movement yet. Exam Vital Signs (past 8 hours): - 10/03/19 05:40 10/03/19 07:25 10/03/19 07:30 Temperature 98.7 F 97.6 F Pulse Rate 86 85 83 Respiratory Rate 16 14 Blood Pressure 117/71 135/83 Pulse Oximetry 100 92 95 Fraction of Inspired Oxygen 21 Oxygen Delivery Method Room Air Oxygen Flow Rate 0 Narrative Exam Narrative: General: Comfortable, no distress, eating breakfast CARDIOVASCULAR: Regular rate. No pedal edema. RESPIRATORY: Normal respiratory rate, breathing comfortably on room air. GASTROINTESTINAL: Abdomen soft and non-distended Perianal: Seton is in place, there is a small amount of blood on the dressings but no active bleeding, no stool staining; no purulent drainage, no foul odor; the skin which was overlying the abscess cavity is very thin and somewhat macerated but nontender and not actively bleeding; dressings removed and not replaced Objective Labs Result Diagrams: 10/03/19 05:55 10/02/19 16:05 Labs: Laboratory Results - last 24 hr 10/02/19 10/02/19 10/03/19 16:05 16:05 05:55 WBC 9.0 14.1 H D RBC 4.63 4.38 Hgb 13.6 13.3 Hct 40.9 39.0 MCV 88.3 89.0 MCH 29.4 30.3 MCHC 33.3 34.1 RDW 14.0 13.7 Plt Count 310 309 Neut % (Auto) 68.4 91.3 H D Lymph % (Auto) 22.1 L 6.2 L [place] % (Auto) 5.9 2.3 L Eos % (Auto) 2.7 0.0 L Baso % (Auto) 0.9 0.2 Neut # (Auto) 6200 32345 H Lymph # (Auto) 2000 900 L [place] # (Auto) 500 300 Eos # (Auto) 200 0 Baso # (Auto) 100 0 Sodium 137 Potassium 5.1 Chloride 101 Carbon Dioxide 29 BUN 12 Creatinine 0.80 Estimated GFR > 60.0 BUN/Creatinine Ratio 15.0 Glucose 98 Calcium 9.1 Magnesium 2.0 Total Bilirubin 1.0 AST 40 H ALT 28 Alkaline Phosphatase 51 Total Protein 7.3 Albumin 4.1 Globulin 3.2 Albumin/Globulin Ratio 1.3 Assessment & Plan Assessment and plan (1) Smoker: Current visit: No Status: Acute (2) Obesity: Current visit: No Status: Acute (3) Anal fistula: Current visit: No Status: Acute (4) Perianal abscess: Current visit: No Status: Acute Assessment & Plan narrative: 39-year-old woman seen 12 hours after her abscess drainage and seton placement for anal fistula. Doing well. Had a long discussion with her about the expectations for recovery, and further management of her fistula. Plan: Dispo planning for today with extensive recommendations given in writing for bowel regimen, wound care, and pain management at home Prescriptions written for pain medication The nurse will review all of the above again with the patient prior to discharge Plan for follow-up with me in the office within the next 2 weeks Time Spent With Patient Time with patient: 15-24 minutes Quality VTE Deep Vein Thrombosis/Pulmonary Embolism Present on Admission: No
--- NOTE | 2019-10-03 13:49 | CM.DANOTE ---
Discharge Planning/Care Management DCP: assessment: case received, EMR reviewed. Discussed in Team Rounds. Pt is a 39 year old female who admitted last night to care of [facility] team. Dr. Lieberman took pt to OR for I&D of tim-anal abscess and placement of seton. Payer: [employer]icaid Admission status: OBS: confirmed by UR KELSIE Lieberman saw pt again today and gave extensive d/c instructions to pt on aftercare needed. Went to room to check in with pt. KELSIE Rios confirmed that she had already left for home with partner Miles driving. Pt will followup in clinic with Dr. Lieberman in 2 weeks or earlier if problems arise. CM Discharge Assessment Start: 10/03/19 13:48 Freq: Status: Active Protocol: Document 10/03/19 13:48 ITV (Rec: 10/03/19 13:49 ITV [id number]) Discharge Planning Assessment Advance Directives? No Advance Directives on File No History Provided By Medical Record Has Patient been admitted in last 30 No days? Prior Living Arrangements House Household Members significant other Is patient alert and oriented? Yes Review Status In Process
--- NOTE | 2019-10-12 09:31 | PC.NURSE ---
Late entry: Jessica stopped 10/03 1283
== END 2019-10-03 10:26 | disposition home or self-care (01) ==
LOC: ED 15:11 → AC 19:55
PROVIDERS: Admitting Provider Surgery; Emergency Provider Nurse Practitioner Family; Visit Provider Surgery
PROC: (CPT 46040; principal; 2019-10-02 20:20)
DX: K61.2 Anorectal abscess (principal); E66.9 Obesity, unspecified; F17.200 Nicotine dependence, unspecified, uncomplicated; K64.1 Second degree hemorrhoids; K64.4 Residual hemorrhoidal skin tags
CPT/HCPCS: 46060; 36415; 74177; 80053; 81003; 83735; 85025; 94640; 94760; 96361; 96365; 96366; 96375; 96376; 99219; 99283; 99285; G0378; C9290; J0330; J1200; J1885; J2250; J2270; J2405; J2543; J2704; J2765; J2930; J3010; Q9967

== ENCOUNTER 2019-10-20 10:19 | Day surgery (SDC) | payer OTHER, MEDICAID, SELFPAY ==
[2019-10-02 22:12] VITALS: BMI 42.5
[2019-10-20] VITALS (7 sets, daily range): BP systolic 115–134; BP diastolic 41–82; PULSE 77–93; RESP 9–16; TEMP 36.1–36.2; O2SAT 94–99
[2019-10-20] MEDS: LACTATED RINGERS 1,000 ML 42 ML IV (10:47)
--- NOTE | 2019-10-20 12:49 | PM.PREOP ---
Pre-operative Note Interval Note History & Physical reviewed/Exam performed by Physician: Yes Changes to H&P: No
[2019-10-20] MEDS: levoFLOXacin 500 MG/100 ML PIGGYBACK 100 MG IV (13:17)
[2019-10-20] MEDS: metroNIDAZOLE 500 MG/100 ML PIGGYBACK 100 MG IV (13:22)
[2019-10-20] MEDS: BUPIVACAINE 0.25% W/ EPI 30 ML VIAL INJ (13:45)
[2019-10-20] MEDS: DIBUCAINE 1% OINT 28 GM 1 APPLIC TOP (13:50)
[2019-10-20] MEDS: BUPIVACAINE LIPOSOME 266 MG/20 ML VIAL INJ (13:53)
--- NOTE | 2019-10-20 14:13 | PM.OP.1 ---
Operative Date/Time/Diagnoses Date of procedure: 10/20/19 Time of procedure: 14:13 Pre-op diagnosis: transsphincteric anal fistula Post-op diagnosis: other ( superficial anal fistula) Procedure & Clinicians Procedure: Anal fistulectomy Same procedure as scheduled: Yes Indications: Anal fistula Surgeon: Teresita Lieberman Click Yes if Unassisted: Yes Anesthesia Type: General Operative Notes Findings: superficial anal fistula without sphincter muscle involvement Specimen(s): none sent Estimated Blood Loss (mL): 3 Procedure in detail: The patient was brought to the operating room. Sequential compression devices were placed on both legs and turned on. Appropriate perioperative antibiotics were given. Anesthesia time-out was conducted. The patient was then put under general anesthesia and intubated without incident using an ET tube by the anesthesiologist. Patient was then positioned in prone emily-knife position on the operating table with all bony prominences padded. Her buttocks were taped apart exposing the anoderm. The perianal area was prepped and draped in sterile fashion using ChloraPrep on skin of the buttocks and saline on the anoderm and anal mucosa due to her betadine allergy. Surgical time-out was conducted. External exam revealed a non cutting seton in place at the 2 o'clock position on the right posterior anal ring. There was a moderately-sized non thrombosed external hemorrhoid on the right anterior position on the anal ring. Local anesthetic was then infiltrated circumferentially in the anoderm of the entire anal ring using 20 mL of 0.25% Marcaine with epi. The anal ring was dilated with a Hill-Herrera retractor and an anorectal exam was conducted. The patient has large grade 2 internal hemorrhoids without stigmata of bleeding. A slim lacrimal probe was placed through the fistula tract with the seton. More local anesthetic was injected in the site of the fistula. Electrocautery on cut was then used to begin dividing the fistula tunnel as laterally away from the midline as possible. This was at approximately the 2 o'clock position on the anal ring. I then switched to coag. As I reached the deeper layers of the fistula roof, no muscle fibers were seen. I continued dividing through the roof, and again saw no reactive muscle. So ultimately I continued dividing through the entire roof of the fistula and freed the seton. No muscle fibers were seen reacting to the cautery during the unroofing of the fistula. Once the fistula tract was unroofed, the excess flap of thickened scarred anoderm was excised and and passed off the table. The floor of the fistula tract was then cauterized using electrocautery in order to excise all granulation tissue. The entire fistula tract was excised. The remaining fistulectomy wound was 2cm x 1cm. Good hemostasis was achieved. A large Gelfoam covered with Dibucaine was rolled and placed into the anal canal. The fistula site was covered thickly with Dibucaine and then infiltrated with 16mL of Exparel. 4 x 4 dressings were placed over the surgical site and anal opening and secured in place with Medipore tape. The patient was then turned supine onto her hospital bed, and she was awakened from anesthesia and extubated by the anesthesiologist without comlications. Needle sponge and instrument counts were correct x2 at the end of the case. The patient was transferred to the postanesthesia care unit in stable condition. Complications: none Post-operative Condition: stable Disposition: PACU
[2019-10-20] MEDS: OXYCODONE/ACETAMINOPHEN 5/325 TABLET 1 TAB PO (14:51)
--- NOTE | 2019-10-20 14:57 | SUR.PHASEII ---
pt arrived to phase II via stretcher. pt sitting up, alert and talking to RN at bedside. Pt family brought to bedside. drsg observed to be c/d/i. pt given pudding and pain medication. bed in lowest position and call light given to pt.
== END 2019-10-20 15:19 | disposition home or self-care (01) ==
PROVIDERS: PCP Nurse Practitioner Gerontology; Visit Provider Surgery
PROC: (CPT 45990; principal; 2019-10-20 12:15)
DX: K60.3 Anal fistula (principal); F17.210 Nicotine dependence, cigarettes, uncomplicated; F41.9 Anxiety disorder, unspecified; K64.1 Second degree hemorrhoids
CPT/HCPCS: 46270; 46030; C9290; J1956; J2405; J2704; J3010

== ENCOUNTER → 2023-05-26 12:33 | Outpatient (CLI) | payer OTHER, MEDICAID, SELFPAY ==
[2020-04-27 09:51] VITALS: BMI 42.5
--- NOTE | 2023-05-26 | DI.US.S_ITS ---
PROCEDURE: US PELVIC COMPLETE INDICATIONS: HISTORY ENDOMETRIAL HYPERPLASIA TECHNIQUE: Real-time scanning was performed of the pelvic organs, with image documentation. Additional endovaginal scanning was necessary due to incomplete visualization of the adnexal and endometrial structures by transabdominal scanning. COMPARISON: [facility], , US PELVIC COMPLETE, 04/15/2022, 16:56. FINDINGS: Uterus: Uterus is anteverted and normal in size at 9.3 x 4.7 x 5.3 cm. The myometrium is homogeneous. The endometrium measures 3.3 mm combined thickness. There are nabothian cysts in the cervix. There is normal vascularity in the uterus and endometrium. Ovaries: Neither ovary was seen. No suspicious adnexal mass. Other: No pathologic free abdominal or pelvic fluid. IMPRESSION: 1. Normal uterine size and normal caliber endometrium. 2. Nonvisualization of either ovary. We strive to produce accurate, complete, and clear reports of imaging services. To assist us in improving patient care, this report was composed using standard report templates and voice recognition software. Therefore, it may contain abnormal punctuation, insertions and/or omissions. Occasional wrong-word or sound-alike substitutions may occur. Though we review the report and make efforts to correct it, we do recommend that the report be read carefully in proper context to recognize any text inaccuracies. Dictated by: Randi Rogers M.D. on 05/26/2023 at 17:41 Approved by: Randi Rogers M.D. on 05/26/2023 at 17:43
== END ==
PROVIDERS: PCP Nurse Practitioner Family; Referring Provider Obstetrics & Gynecology; Visit Provider Obstetrics & Gynecology
DX: N85.00 Endometrial hyperplasia, unspecified; N88.8 Other specified noninflammatory disorders of cervix uteri
CPT/HCPCS: 76830; 76856

== ENCOUNTER 2023-09-12 06:26 | Day surgery (SDC) | payer OTHER, MEDICAID, SELFPAY ==
[2020-04-27 09:51] VITALS: BMI 42.5
[2023-09-02 14:57] VITALS: BMI 43.0
--- NOTE | 2023-09-12 | PATH_ITS ---
[facility] Accession Number: [id number] No. of containers..01 Tissue . 01 Material submitted: . endometrium - ENDOMETRIAL CURRETTINGS . 01 Diagnosis: Endometrial Curettings: Portions of weakly proliferative endometrium; negative for glandular hyperplasia, cytologic atypia, or malignancy. Detached portions of squamous mucosa with reactive features; negative for squamous dysplasia or malignancy. Detached portions of mildly inflamed endocervical tissue; negative for glandular dysplasia or malignancy. MRV 09/18/2023 1404 Local . 01 Electronically signed: . Bria Jefferson MD, Pathologist NPI- [id number] . 01 Gross description: . ENDOMETRIAL CURRETTINGS: Received in formalin are minute fragments of mucoid and hemorrhagic material measuring 3.0 x 2.5 x 0.4 cm in aggregate. Submitted in toto in 1 cassette. /AAY 09/16/2023 0152 Local . 01 Pathologist provided ICD-10: R93.89, N92.1 . 01 CPT . 058461 Performed at: 01 [facility] [address] [place] [address], [place], [place] [id number] MD Josue Hanson MD Phone: [phone]
[2023-09-12 06:51] VITALS: BP 150/93; PULSE 88; RESP 16; TEMP 36.8; O2SAT 97; BMI 43.0
[2023-09-12] MEDS: LACTATED RINGERS 1,000 ML 42 ML IV (07:04)
[2023-09-12] MEDS: SCOPOLAMINE 1 PATCH TOP (07:04)
[2023-09-12] MEDS: ALBUTEROL/IPRATROPIUM 3 ML AMPUL INH (07:20)
--- NOTE | 2023-09-12 07:32 | SUR.OPER ---
Lithotomy on padded OR bed, head on pillow, arms secured on padded arm boards at <90 degrees abduction. Legs secured in padded yellow fins stirrups.
--- NOTE | 2023-09-12 07:41 | PM.PREOP ---
Pre-operative Note COVID-19 COVID-19 status: Not tested Interval Note History & Physical reviewed/Exam performed by Physician: Yes Changes to H&P: No
--- NOTE | 2023-09-12 08:31 | P.OP_ITS ---
Operative Date/Time/Diagnoses Date of procedure: 09/12/23 Time of procedure: 07:55 Pre-op diagnosis: Breakthrough bleeding on Depo-Provera Post-op diagnosis: same Procedure & Clinicians Procedure: Procedures Operation Date: 09/12/23 07:45 Actual Procedure Side Surgeon p Hysteroscopy w/ Possible Bx's, D&C of the uterus, Novasure Endometrial Ablation Clive Casillas MD Indications: Lucille is a 43-year-old (C/S x2)A1(SAB), LMP 08/08/2023 who presented originally for evaluation of extremely heavy periods for the last year and thickening of the endometrial stripe on an ultrasound performed at [facility] on 04/15/2022.? Patient experienced menarche at age 6 with regular periods occurring on a 28-32 day cycle up until March of 2021.? Patient underwent an annual pelvic exam and Pap in August of 2021 the patient was 7 days late for her period and began spotting on 04/04/2022 with flooding beginning on 04/07/2022.? She was initiated on medroxyprogesterone acetate 10 mg daily on 04/15/2022 which she took for 30 days and upon discontinuation her bleeding resume.? She resumed MPA on 05/18/2022 and she continues taking 10 mg of Provera daily.? The patient bled for a period of 5 weeks after starting on 04/07/2022 but is amenorrheic at this point.? Patient has a history of normal P aps throughout her adult life.? She has used Depo-Provera in the past for contraception but had a sterilization procedure performed in 2005.? Her menses throughout her adult life have been 28 day cycles with 5 to 6 days of flow, 2 of which were fairly heavy.? Patient has not had any intermenstrual spotting or bleeding and also denies any postcoital bleeding.? Pelvic ultrasound performed on 04/15/2022 showed the uterus to be slightly enlarged with measurements of 13.4 x 4.5 x 5.7 cm and the endometrial stripe measured 20 mm in combined thickness.? The right ovary measured 3.8 x 2.3 x 2.5 cm for a total volume of 11.3 cc and on the left side the ovary measured 2.9 x 2.0 x 2.1 with a total volume of 6.2 cc.? There small simple cysts within both ovaries with the 1 on the left measuring 1.8 x 1.7 by 1.4 and the 1 on the right measuring 2.3 x 1.8 x 1.8 cm.? No free fluid was noted no other abnormalities seen. Endometrial sampling performed in May 2022 showed only dyssynchronous endometrium but no evidence of hyperplasia, neoplasia, or atypia. After discussing all options the patient was placed on Depo-Provera IM Q 10 weeks which resulted in significant thinning of her endometrial stripe but she has continued to have intermittent episodes of spotting/bleeding. After discussion of all options, the patient has decided to move forward with hysteroscopy with possible biopsies, dilation and curettage of the uterus, and endometrial ablation (NovaSure). She presents today for her scheduled surgery. Surgeon: Clive Casillas Anesthesia Type: General Operative Notes Closure Type: not applicable Specimen(s): endometrial curettings Estimated blood loss (mL): 5 Blood products transfused: none Procedure in detail: With the patient under general LMA in the modified dorsal lithotomy position, the perineum, vagina, and lower abdomen were prepped and draped in the usual fashion for hysteroscopy with endometrial ablation. A pre-surgical safety time- out was then taken in accordance with [facility] OR protocols. A bivalve speculum was inserted in the vagina and the cervix visualized. The anterior lip of the cervix was grasped with a single-tooth tenaculum and the endocervical canal was then dilated to 6 mm diameter. Hysteroscope was placed through the endocervical canal into the endometrial cavity and the cavity was visualized. There were no localized abnormalities within the endometrial cavity and the endometrium itself was unremarkable. Both tubal ostia were visualized. The hysteroscope was then withdrawn and a fractional dilation and curettage was accomplished with separate pathologic specimen submitted for the endometrial and endocervical curettings. The uterine cavity was then sounded with the NovaSure device and found to be 6.0 cm in depth. The NovaSure device was then inserted through the endocervical canal into the endometrial cavity and the width of the cavity determined to be 3.9 cm. Cavity integrity test demonstrated the cavity to be intact and ablation was initiated. Ablation time was 61 seconds with power utilized 129 w. The NovaSure device was then removed from the endometrial cavity and hysteroscopy demonstrated excellent ablation effect. The tenaculum was then removed from the anterior lip of the cervix and no bleeding was encountered. The speculum was then removed from the vagina and the patient awakened from anesthesia. She was then transferred to the PACU for a period of observation and recovery having tolerated the procedure well. Complications: none Post-operative Condition: stable Disposition: PACU Plan for aftercare: Routine post-op care.
[2023-09-12 08:34] VITALS: BP 191/105; PULSE 78; RESP 19; TEMP 36.8; O2SAT 99
[2023-09-12 08:39] VITALS: BP 158/87; PULSE 78; RESP 12; O2SAT 99
[2023-09-12 08:44] VITALS: BP 152/95; PULSE 73; RESP 18; O2SAT 99
[2023-09-12] MEDS: ONDANSETRON 4 MG/2 ML INJ IV (08:44)
[2023-09-12 08:53] VITALS: BP 152/79; PULSE 71; RESP 21; TEMP 36.6; O2SAT 98
[2023-09-12] MEDS: KETOROLAC 30 MG/ML VIAL IV (08:53)
== END 2023-09-12 09:15 | disposition home or self-care (01) ==
PROVIDERS: PCP Nurse Practitioner Family; Referring Provider Obstetrics & Gynecology; Visit Provider Obstetrics & Gynecology
PROC: 0U5B8ZZ Destruction of Endometrium, Via Natural or Artificial Opening Endoscopic (ICD-10-PCS; CPT 58563; principal; 2023-09-12 07:45)
DX: N93.8 Other specified abnormal uterine and vaginal bleeding (principal); R93.89 Abnormal findings on diagnostic imaging of other specified body structures
CPT/HCPCS: 58563; J1100; J1885; J2250; J2405; J2704; J3010